=== PATIENT | male | born 1965 | race Caucasian/White ===

== ENCOUNTER 2019-05-29 13:29 | Emergency (ER) | payer OTHER, SELFPAY ==
[2019-05-29 13:35] VITALS: BP 140/88; PULSE 69; RESP 14; TEMP 36.7; O2SAT 99
[2019-05-29 14:12] VITALS: BP 135/86; PULSE 65; RESP 14; TEMP 36.5; O2SAT 99
[2019-05-29] MEDS: PROPARACAINE 0.5% OPHTH SOL 1 DROPS EYE-BOTH (15:29)
[2019-05-29] MEDS: FLUORESCEIN 1 MG STRIP EYE-BOTH (15:29)
--- NOTE | 2019-05-29 16:15 | ED.SKABFB ---
HPI - Skin/Abscess/Foreign Bdy General Chief complaint: Skin/Abscess/Foreign Body Stated complaint: sores on head, blurred vision in left eye Time Seen by Provider: 05/29/19 14:57 Source: patient Mode of arrival: Ambulatory Limitations: no limitations History of Present Illness HPI narrative: Patient comes emergency department complaining of sores on his left anterior scalp and forehead and irritation of his left eye. The patient states he has not been running any fevers or having any nasal discharge. No lesions on the tip of his nose. Patient states his vision is slightly blurry but that his eye does not hurt. Patient does not were contact lenses. He has not been exposed to any welding or other bright lights recently. No other complaints at this time. Related Data Previous Rx's Medication Instructions Recorded acyclovir 800 mg PO 5XD #35 tab 05/29/19 ketorolac 1 drop EYE-LEFT QID #5 ml 05/29/19 Allergies Allergy/AdvReac Type Severity Reaction Status Date / Time No Known Drug Allergies Allergy Verified 05/29/19 13:07 Review of Systems Constitutional Constitutional: Denies chills, Denies fatigue, Denies fever(s), Denies frequent falls, Denies lethargy and Denies weakness Eyes Eyes: Denies change in vision, Denies eye discharge, Reports irritation and Denies loss of vision ENT Ears, Nose, Mouth, and Throat: Denies change in voice, Denies dizziness, Denies neck pain, Denies sore throat and Denies throat swelling Cardiovascular Cardiovascular: Denies chest pain, Denies irregular heart rhythm, Denies lightheadedness, Denies palpitations, Denies dyspnea, Denies dyspnea on exertion and Denies orthopnea Respiratory Respiratory: Denies cough, Denies dyspnea, Denies dyspnea on exertion and Denies wheezing Gastrointestinal Gastrointestinal: Denies abdominal pain, Denies change in bowel habits, Denies diarrhea, Denies nausea and Denies vomiting Genitourinary Genitourinary: Denies hematuria, Denies flank pain, Denies urinary incontinence and Denies urinary urgency Musculoskeletal Musculoskeletal: Denies back pain, Denies muscle weakness, Denies neck pain, Denies numbness and Denies tingling Integumentary/Breasts Skin/Breast: Denies pruritus, Denies erythema, Reports rash and Denies wounds Neurologic Neurologic: Denies behavioral changes, Denies confusion, Denies dizziness, Denies frequent falls, Denies loss of vision, Denies numbness, Denies tingling and Denies weakness Psychiatric Psychiatric: Denies anxiety, Denies behavioral changes, Denies confusion, Denies depression, Denies homicidal ideation and Denies suicidal ideation Endocrine Endocrine: Denies fatigue, Denies flushing and Denies palpitations Hematologic/Lymphatic Hematologic/Lymphatic: Denies easy bruising Allergic/Immunologic Allergic/Immunologic: Denies urticaria, Denies throat swelling and Denies wheezing Patient History Medical History Healthy adult (Acute) Social History Smoking Status: Former smoker Smoking Status: Former smoker Exam Initial Vital Signs Initial Vital Signs: Vital Signs Temperature 98.0 F 05/29/19 13:35 Pulse Rate 69 05/29/19 13:35 Respiratory Rate 14 05/29/19 13:35 Blood Pressure 140/88 05/29/19 13:35 Pulse Oximetry 99 05/29/19 13:35 Const General: cooperative and well developed Nutritional Appearance: well nourished Orientation: alert, awake, oriented x3 and not confused [facility] Head: normocephalic, atraumatic, scalp lesion (Multiple, vesicular and ulcerated, small) and other (Lesions involve left scalp and forehead) Ears: external ears normal Nose: external nose normal and No nasal discharge Face and sinus: face symmetric and No dry mucous membranes Mouth: oral mucosae normal and moist mucous membranes Teeth and gingiva: dentition normal Eyes General: appearance normal, both eyes and all related structures Eyelids: eyelids normal Conjunctivae: conjunctival abnormality left conjunctival injection (Mild) diffuse Sclera: sclerae normal Cornea: corneas normal and fluorescein used (No enhancement with fluorescein) Pupils: PERRL EOM: EOM intact bilaterally Neck Neck: normal visual inspection, trachea midline, No lymphadenopathy, No midline deformity and No JVD Lymphatic: No lymphedema Chest Chest: normal inspection of the chest Resp Effort & Inspection: normal respiratory effort, able to speak in complete sentences, no respiratory distress and no use of accessory muscles Auscultation: clear to auscultation bilaterally, no rales, no rhonchi and no wheezes Cardio Rate: regular rate Rhythm: regular rhythm Heart Sounds: no click, no gallops, no murmurs and no rubs Pulses: normal peripheral pulses GI Inspection: non-distended Palpation: soft, no hepatosplenomegaly, No guarding, No pulsatile mass and No tender Back/Spine/Pelvis Back: No CVA tenderness Cervical Spine: cervical ROM normal and No pain with cervical ROM Thoracic/Lumbar Spine: thoracic and lumbar spine normal to inspection Skin General: no rashes or lesions noted, No jaundice and No petechiae Neuro General: alert, oriented x3, gait normal and no focal motor deficits Speech: speech normal Extrem General: full ROM, no clubbing, cyanosis or edema, no pedal edema and no calf tenderness Psych Appearance: well kempt Mental Status: mental status grossly normal Attitude: cooperative Thought Content: normal and suicidality Judgment: judgment good Course Course Course Narrative: The patient was started on acyclovir for herpes zoster. I discussed with the patient that I do not find any evidence of nasal ciliary branch involvement and that his eye does not display any lesions at this time. I've placed the patient on ketorolac ophthalmic drops for comfort. He has been advised regarding follow-up and the usual indications for return. Orders Ordered: Discontinued Medications Acyclovir (Zovirax) 800 mg PO NOW ONE Stop: 05/29/19 15:48 Last Admin: 05/29/19 16:32 Dose: Not Given Documented by: FAHEEM Fluorescein Sodium (Ful-Gege) 1 mg EYE-BOTH NOW ONE Stop: 05/29/19 15:26 Last Admin: 05/29/19 15:29 Dose: 1 mg Documented by: FAHEEM Proparacaine HCl (Parcaine 0.5% Ophth Mara) 1 drops EYE-BOTH NOW ONE Stop: 05/29/19 15:25 Last Admin: 05/29/19 15:29 Dose: 1 drop Documented by: FAHEEM Vital Signs Vital signs: Vital Signs - 8 hr 05/29/19 13:35 05/29/19 14:12 Temperature 98.0 F 97.7 F Pulse Rate 69 65 Respiratory Rate 14 14 Blood Pressure 140/88 Blood Pressure [Left Arm] 135/86 Pulse Oximetry 99 99 MDM - Skin/Abscess/Foreign Bdy Medical Records Attestation: I reviewed the patient's medical records. Discharge Plan Departure Patient Disposition: Home Clinical Impression: Herpes zoster Qualifiers: Herpes zoster complications: without complications Qualified Code(s): B02.9 - Zoster without complications Discharge Date/Time: 05/29/19 16:34 Instructions: DI for Shingles Activity Restrictions/Additional Instructions: You have shingles of one of the nerves of your scalp, but not the nerve that services the surface of your eye. Please take the medication for shingles, as directed. You may use the eyedrops to help with inflammation, as needed. Your prescriptions have been electronically transmitted to [facility] [place]. Prescriptions: New acyclovir 800 mg tablet 800 mg PO 5XD Qty: 35 RF: 0 ketorolac 0.5 % drops 1 drop EYE-LEFT QID Qty: 5 RF: 0 Referrals: Stephan Gifford MD [Family Provider] - Stand Alone Forms: Work Release Note
--- NOTE | 2019-05-29 16:34 | PC.NURSE ---
Discharge note: Discharge instructions given to patient, discussed importance of Rx Medication including eye drops, and F/U with PMD. Verbalized understanding. Ambulated independently, stable, home via private vehicle with significant other. Rx sent to [facility].
== END 2019-05-29 16:34 | disposition home or self-care (01) ==
PROVIDERS: Emergency Provider Emergency Medicine; Family Provider Family Medicine
DX: B02.9 Zoster without complications (principal)
CPT/HCPCS: 99281; 99283

== ENCOUNTER 2019-12-27 06:30 | Emergency (ER) | payer OTHER, SELFPAY ==
[2019-12-27 06:42] VITALS: BP 132/89; PULSE 78; RESP 16; TEMP 36.6; O2SAT 98; BMI 31.7
--- NOTE | 2019-12-27 06:52 | DI.RAD.S_ITS ---
PROCEDURE: XR KNEE RT 3V INDICATIONS: pain, swelling TECHNIQUE: 3 views of the knee were acquired. COMPARISON: None. FINDINGS: Bones: No fractures or dislocations. No suspicious bony lesions. Soft tissues: No joint effusion. No suspicious soft tissue calcifications. IMPRESSION: Normal for age, source of current pain and swelling symptoms is not seen. Dictated by: Jared Simon M.D. on 12/27/2019 at 8:29 Approved by: Jared Simon M.D. on 12/27/2019 at 8:30
--- NOTE | 2019-12-27 06:53 | ED.LOWEXIN ---
HPI - Extremity Injury (Lower) <Kevin Huertas DO - Last Filed: 12/28/19 01:47> General Chief Complaint: Extremity Injury, Lower Stated Complaint: right knee,strain ligaments Time Seen by Provider: 12/27/19 06:30 Source: patient and family Mode of arrival: Ambulatory Limitations: no limitations History of Present Illness HPI Narrative: 54-year-old male nonsmoker with history of knee pain presents with significant other in the chief complaint of right knee pain and swelling since an injury day or 2 ago. He was walking quickly at work and turned and felt a pop in his knee and then developed swelling, pain with ambulation and the sensation of instability. He denies any numbness, tingling or weakness. He denies any traumatic impact with the bone. MD complaint: knee injury Onset (ago): day(s) Place: work Severity: moderate Relieving factors: rest Exacerbating factors: weight bearing, movement and palpation Context: walking Associated symptoms: snap/pop sensation, swelling and able to partially bear weight Other symptoms: none Treatments prior to arrival: cold therapy Related Data Previous Rx's Medication Instructions Recorded acyclovir 800 mg PO 5XD #35 tab 05/29/19 ketorolac 1 drop EYE-LEFT QID #5 ml 05/29/19 hydrocodone-acetaminophen [[place]] 1 tab PO Q6H PRN #12 tab 12/27/19 naproxen [Naprosyn] 500 mg PO BID PRN #20 tab 12/27/19 Allergies Allergy/AdvReac Type Severity Reaction Status Date / Time No Known Drug Allergies Allergy Verified 05/29/19 13:07 Review of Systems <DO Ashleigh Gil Last Filed: 12/28/19 01:47> Constitutional Constitutional: Denies chills, Denies fatigue, Denies fever(s), Denies frequent falls, Denies lethargy and Denies weakness Eyes Eyes: Denies change in vision, Denies eye discharge, Denies irritation and Denies loss of vision ENT Ears, Nose, Mouth, and Throat: Denies change in voice, Denies dizziness, Denies neck pain, Denies sore throat and Denies throat swelling Cardiovascular Cardiovascular: Denies chest pain, Denies irregular heart rhythm, Denies lightheadedness, Denies palpitations, Denies dyspnea, Denies dyspnea on exertion and Denies orthopnea Respiratory Respiratory: Denies cough, Denies dyspnea, Denies dyspnea on exertion and Denies wheezing Gastrointestinal Gastrointestinal: Denies abdominal pain, Denies change in bowel habits, Denies diarrhea, Denies nausea and Denies vomiting Musculoskeletal Musculoskeletal: Reports joint swelling, Reports limited range of motion, Denies neck pain and Denies numbness Integumentary/Breasts Skin/Breast: Denies pruritus, Denies erythema, Denies rash and Denies wounds Neurologic Neurologic: Denies behavioral changes, Denies confusion, Denies dizziness, Denies frequent falls, Denies loss of vision, Denies numbness and Denies weakness Psychiatric Psychiatric: Denies anxiety, Denies behavioral changes, Denies confusion, Denies depression, Denies homicidal ideation and Denies suicidal ideation Endocrine Endocrine: Denies fatigue, Denies flushing and Denies palpitations Hematologic/Lymphatic Hematologic/Lymphatic: Denies easy bruising Allergic/Immunologic Allergic/Immunologic: Denies urticaria, Denies throat swelling and Denies wheezing Patient History <Kevin Huertas DO - Last Filed: 12/28/19 01:47> Medical History Healthy adult (Acute) Social History Smoking Status: Former smoker Smoking Status: Former smoker alcohol intake frequency: 0-2 drinks per day Substance Use Type: marijuana Exam <Kevin Huertas DO - Last Filed: 12/28/19 01:47> Narrative Exam Narrative: GEN: AOx3 and in mild distress EYES: Pupils are equal, round, and reactive to light and accommodation. Extraoccular muscles are intact bilaterally. There is no subconjunctival hemorrhage or exudate. CHEST: Lungs are clear to auscultation bilaterally and free of wheezes, rales, or rhonchi. Heart rate is regular rhythm, there are no murmurs, clicks, rubs, or gallops. There is no chest wall tenderness. ABD: Abdomen is soft and nontender. There is no guarding or rebound. Bowel sounds are normal in all 4 quadrants. There is no mass or organomegaly. EXT: Full but painful range of motion of the right knee with a moderate effusion. No ligamentous instability. Mild tenderness to palpation along bilateral joint lines. No redness or warmth to suggest suspicion of septic arthritis SKIN: Warm, pink, and dry. No erythema or rash Initial Vital Signs Initial Vital Signs: Vital Signs Temperature 97.8 F 12/27/19 06:42 Pulse Rate 78 12/27/19 06:42 Respiratory Rate 16 12/27/19 06:42 Blood Pressure 132/89 12/27/19 06:42 Pulse Oximetry 98 12/27/19 06:42 <Ebenezer Burr MD - Last Filed: 12/28/19 07:53> Initial Vital Signs Initial Vital Signs: Vital Signs Temperature 97.8 F 12/27/19 06:42 Pulse Rate 78 12/27/19 06:42 Respiratory Rate 16 12/27/19 06:42 Blood Pressure 132/89 12/27/19 06:42 Pulse Oximetry 98 12/27/19 06:42 Course <Kevin Huertas DO - Last Filed: 12/28/19 01:47> Course Course Narrative: signout to Dr. Burr for final dispostion Orders Ordered: Discontinued Medications Hydrocodone Bitart/Acetaminophen ([place] 5/325) 2 tab PO NOW ONE Stop: 12/27/19 08:24 Last Admin: 12/27/19 09:09 Dose: 2 tab Documented by: ALLEN Ketorolac Tromethamine (Toradol) 30 mg IM NOW ONE Stop: 12/27/19 08:24 Last Admin: 12/27/19 09:09 Dose: 30 mg Documented by: ALLEN Vital Signs Vital signs: Vital Signs - 8 hr 12/27/19 06:42 Temperature 97.8 F Pulse Rate 78 Respiratory Rate 16 Blood Pressure 132/89 Pulse Oximetry 98 <Ebenezer Burr MD - Last Filed: 12/28/19 07:53> Orders Ordered: Discontinued Medications Hydrocodone Bitart/Acetaminophen ([place] 5/325) 2 tab PO NOW ONE Stop: 12/27/19 08:24 Last Admin: 12/27/19 09:09 Dose: 2 tab Documented by: ALLEN Ketorolac Tromethamine (Toradol) 30 mg IM NOW ONE Stop: 12/27/19 08:24 Last Admin: 12/27/19 09:09 Dose: 30 mg Documented by: ALLEN Vital Signs Vital signs: Vital Signs - 8 hr 12/27/19 06:42 Temperature 97.8 F Pulse Rate 78 Respiratory Rate 16 Blood Pressure 132/89 Pulse Oximetry 98 Discharge Plan Departure Patient Disposition: Home Clinical Impression: Knee sprain Qualifiers: Encounter type: initial encounter Involved ligament of knee: unspecified ligament Laterality: right Qualified Code(s): S83.91XA - Sprain of unspecified site of right knee, initial encounter Effusion of knee Qualifiers: Laterality: right Qualified Code(s): M25.461 - Effusion, right knee Discharge Date/Time: 12/27/19 09:24 Instructions: DI for Knee Sprain, DI for Knee Pain Activity Restrictions/Additional Instructions: 1. Wear the straight leg immobilizer and use crutches to walk on. 2. Keep your leg elevated as much as possible and apply ice compresses for 20-30 minutes every 2 hours while awake for the next 48 hours. 3. Take the Naprosyn for pain and discomfort and use the [place] as a rescue medicine for severe pain and discomfort. 4. Follow-up with your orthopedic surgeon Dr. Recinos for re-evaluation. Prescriptions: New naproxen [Naprosyn] 500 mg tablet 500 mg PO BID PRN (Reason: pain) Qty: 20 RF: 0 hydrocodone-acetaminophen [[place]] 5-325 mg tablet 1 tab PO Q6H PRN (Reason: pain) Qty: 12 RF: 0 No Action acyclovir 800 mg tablet 800 mg PO 5XD Qty: 35 RF: 0 ketorolac 0.5 % drops 1 drop EYE-LEFT QID Qty: 5 RF: 0 Referrals: Eleanor Recinos MD [Physician] - (right knee sprain with small effusion ) <Ebenezer Burr MD - Last Filed: 12/28/19 07:53> Sign Out Provider Sign Out Attestation: 0705: Report was provided by Dr. Huertas. The patient injured his right knee and his x-rays were pending at the time of change of shift. 0813: my review of the xray reveals no fracture. The patient will be place in a straight leg immobilizer and crutches prescribed. The patient will be referred to the orthopedic surgeon Dr. Recinos at [facility] .Orthopedics.
[2019-12-27] MEDS: KETOROLAC 60 MG/2 ML VIAL 30 MG IM (09:09)
[2019-12-27] MEDS: HYDROCODONE/ACET 5/325 TABLET 2 TAB PO (09:09)
--- NOTE | 2019-12-27 09:14 | PC.NURSE ---
placed on 2lnc.
[2019-12-27 09:24] VITALS: BP 128/78; PULSE 75; RESP 16; O2SAT 97
== END 2019-12-27 09:24 | disposition home or self-care (01) ==
PROVIDERS: Emergency Provider Emergency Medicine; Family Provider Family Medicine
DX: S83.91XA Sprain of unspecified site of right knee, initial encounter (principal); M25.461 Effusion, right knee
CPT/HCPCS: 73562; 96372; 99283; 99284; J1885

== ENCOUNTER 2021-04-08 16:40 | Emergency (ER) | payer OTHER, SELFPAY ==
[2021-04-08 16:40] VITALS: BP 131/77; PULSE 66; RESP 16; TEMP 36.8; O2SAT 97; BMI 32.4
[2021-04-08 17:51] LABS: COVID19 -Nasal RAPID POSITIVE (Negative)
--- NOTE | 2021-04-08 19:27 | ED_ITS ---
HPI - URI/Sore Throat <DOM Evans - Last Filed: 04/08/21 19:34> General Chief Complaint: Upper Respiratory Symptoms Stated Complaint: states covid + Time Seen by Provider: 04/08/21 17:02 Source: patient Mode of arrival: Ambulatory Limitations: no limitations History of Present Illness HPI Narrative: The patient is a 56-year-old male former smoker who denies current medical problems who presents with a chief complaint of a positive COVID test at his work today. He states on Tuesday and Tuesday he started feeling a bit congested and had a cough. He states he never lost his taste or smell. Denies any chest pain or shortness of breath. 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 He was tested today as he has been calling out the past few days and tested positive for COVID. He was referred to the emergency department for ?a confirmatory test/he denies any chest pain shortness of breath current pain nausea vomiting diarrhea or abdominal pain. Related Data Home Medications Medication Instructions Recorded Confirmed No Known Home Medications 12/31/19 12/31/19 Allergies Allergy/AdvReac Type Severity Reaction Status Date / Time No Known Drug Allergies Allergy Verified 12/31/19 08:20 Review of Systems <DOM Evans - Last Filed: 04/08/21 19:34> Review of Systems Narrative: GENERAL: See HPI HEENT: Denies sinus pain, ear pain, sore throat, difficulty swallowing, dizziness. RESPIRATORY: See HPI CARDIOVASCULAR: Denies chest pain, palpitations, orthopnea, edema, GASTROINTESTINAL: Denies nausea, vomiting, abdominal pain, diarrhea, constipation, melena. : Denies dysuria, frequency, incontinence, hematuria, urinary retention. MUSCULOSKELETAL: denies weakness, joint pain, or bony pain SKIN: Denies rash, skin lesions, or other NEUROLOGIC: Denies weakness, headache, numbness, change in speech, confusion, seizures, incoordination. PSYCHIATRIC: No concerning psychosocial issues. 12 point review of systems is negative except for those stated above Patient History <DOM Evans - Last Filed: 04/08/21 19:34> Medical History (Updated 04/08/21 @ 19:30 by DOM Evans) Family history of diabetes mellitus (DM) Family history of heart disease Healthy adult Obesity (BMI 30.0-34.9) Vision disorder Social History Smoking Status: Former smoker Smoking Status: Former smoker alcohol intake frequency: holidays/special occasions only Substance Use Type: marijuana Exam <DOM Evans - Last Filed: 04/08/21 19:34> Narrative Exam Narrative: GENERAL: This is a well-nourished, well-developed patient, in no acute distress HEAD: Atraumatic. Normocephalic. No temporal or scalp tenderness. EYES: Pupils equal round and reactive. Extraocular motions intact. No scleral ic terus. No injection or drainage. ENT: Nose without bleeding, purulent drainage or septal hematoma. Wearing a mask. Airway patent. NECK: Trachea midline. No JVD or lymphadenopathy. Supple, nontender, no meningeal signs. CARDIOVASCULAR: Regular rate and rhythm RESPIRATORY: Clear to auscultation. Breath sounds equal bilaterally. No wheezes, rales, or rhonchi.. No increased respiratory effort. No accessory muscle use. Speaking full sentences. No cough. GASTROINTESTINAL: Abdomen soft, non-tender, nondistended. No hepato- splenomegaly, or palpable masses. No guarding. EXTREMITIES: No clubbing, cyanosis, or edema. No joint tenderness, effusion, or edema noted. BACK: Nontender without deformity or crepitance. No flank tenderness. NEURO: AOx3. SKIN: No rash or erythema on visible skin Initial Vital Signs Initial Vital Signs: Vital Signs Temperature 98.2 F 04/08/21 16:40 Pulse Rate 66 04/08/21 16:40 Respiratory Rate 16 04/08/21 16:40 Blood Pressure 131/77 04/08/21 16:40 Pulse Oximetry 97 04/08/21 16:40 <Lula Mitchell DO - Last Filed: 04/09/21 02:30> Initial Vital Signs Initial Vital Signs: Vital Signs Temperature 98.2 F 04/08/21 16:40 Pulse Rate 66 04/08/21 16:40 Respiratory Rate 16 04/08/21 16:40 Blood Pressure 131/77 04/08/21 16:40 Pulse Oximetry 97 04/08/21 16:40 Course <DOM Evans - Last Filed: 04/08/21 19:34> Orders Ordered: ED Orders 04/08/21 16:50 COVID19 -Nasal swab/Pre-Proc Stat Vital Signs Vital signs: Vital Signs - 8 hr 04/08/21 19:49 Pulse Rate 71 Respiratory Rate 18 Blood Pressure 126/90 Pulse Oximetry 99 <Lula Anita Mitchell DO - Last Filed: 04/09/21 02:30> Orders Ordered: ED Orders 04/08/21 16:50 COVID19 -Nasal swab/Pre-Proc Stat Vital Signs Vital signs: Vital Signs - 8 hr 04/08/21 19:49 Pulse Rate 71 Respiratory Rate 18 Blood Pressure 126/90 Pulse Oximetry 99 MDM - URI/Sore Throat <DOM Evans - Last Filed: 04/08/21 19:34> Lab Data Labs: Lab Results 04/08/21 Range/Units 16:50 SARS-CoV-2 (PCR) Positive H (Negative) MDM Narrative Medical decision making narrative: The patient is a 56-year-old male who presents with a chief complaint of a positive COVID test at his work. He tests positive here, however states he feels much improved over the past few days and states he feels well and normal now. He is oxygenating well 97% on room air, as well as a normal exam. Given his BMI, we did discussed the use of antibodies however the patient declines at this point time stating he feels well enough without them. I discussed at length quarantine, self isolation, washing hands and high touched surfaces as where all as contact tracing a mask use. Will give patient work note. Encouraged follow-up with his employer as well as primary care provider. Patient is oxygenating well, has no acute concerns no questions or concerns upon discharge. <Lula Mitchell DO - Last Filed: 04/09/21 02:30> Lab Data Labs: Lab Results 04/08/21 Range/Units 16:50 SARS-CoV-2 (PCR) Positive H (Negative) Discharge Plan Departure Patient Disposition: Home Clinical Impression: COVID-19 Instructions: DI for COVID-19 (Suspected or Confirmed ), Coronavirus Disease 2019, Can COVID-19 be prevented? Activity Restrictions/Additional Instructions: Thank you for trusting us with your care today. As discussed, you did test positive for COVID-19. Please isolate at home, wash your hands, cover your coughs and sneezes, use [id number] medications as needed and able. I have given you a work note for 10 days since symptom onset. Please rest, push fluids, use [id number] medications, take vitamin-C and vitamin-D Please come back to the emergency department for any acute concerns such as chest pain or shortness of breath. Prescriptions: No Action No Known Home Medications RF: 0 Stand Alone Forms: Work Release Note
[2021-04-08 19:49] VITALS: BP 126/90; PULSE 71; RESP 18; O2SAT 99
== END 2021-04-08 19:49 | disposition home or self-care (01) ==
PROVIDERS: Emergency Medicine; Emergency Provider Nurse Practitioner Family
DX: U07.1 COVID-19 (principal)
CPT/HCPCS: 87635; 99281; 99282; C9803